=== PATIENT | female | born 1965 | race Hispanic/Latino ===

== ENCOUNTER 2018-09-05 14:30 | Emergency (ER) | payer OTHER ==
[2018-09-05 15:08] LABS: #Basophils 0.1 thou/uL (0.0-0.2); #Monocytes 0.6 thou/uL (0.11-0.59); #Neutrophils 10.4 thou/uL (1.40-6.50); %Basophils 0.5 % (0.0-1.0); %Lymphocytes 8.2 % (21.0-51.0); %Monocytes 5.1 % (0.0-10.0); %Neutrophils 86.2 % (42.0-75.0); Hemoglobin 14.4 g/dL (12.0-16.0); Mean Corpuscular HGB CONC 33.2 g/dL (32.0-36.0); Mean Corpuscular Hemoglobin 29.1 pg (27.0-31.0); Mean Corpuscular Volume 87.7 fL (78.0-98.0); Mean Platelet Volume 5.5 fL (7.4-10.4); Platelet Count 334 thou/uL (130-400); RBC Distribution Width 11.1 % (11.5-14.5); Red Blood Cell (RBC) Count 4.94 mill/uL (4.20-5.40); White Blood Cell (WBC) Count 12.1 thou/uL (4.8-10.8)
[2018-09-05] MEDS ORDERED: Acetaminophen 500 MG TAB ONE (15:11)
[2018-09-05] MEDS ORDERED: Sodium Chloride 0.9% 1,000 ML ONE (15:11)
[2018-09-05] MEDS ORDERED: Insulin Regular 300 UNITS/3 ML VIAL ONE ×2 (15:11→15:52)
[2018-09-05] MEDS ORDERED: Ondansetron PF 4 MG/2 ML Vial ONE (15:11)
[2018-09-05 15:25] LABS: ALT (SGPT) 19 U/L (8-55); AST (SGOT) 15 U/L (5-34); Albumin 4.3 g/dL (3.5-5.0); Alkaline Phosphatase 111 U/L (40-150); Anion Gap 20 mmol/L (10-20); BUN (Urea Nitrogen) 10 mg/dL (9.8-20.1); Bilirubin, Total 0.4 mg/dL (0.2-1.2); Calc. Creatinine Clearance 0 mL/min (70-130); Calcium 10.3 mg/dL (7.8-10.44); Carbon Dioxide 20 mmol/L (22-29); Chloride 99 mmol/L (98-107); Estimated GFR-MDRD 71; Globulin 3.1 g/dL (2.4-3.5); Glucose 390 mg/dL (70-105); Lipase 5 U/L (8-78); Potassium 3.8 mmol/L (3.5-5.1); Protein, Total 7.4 g/dL (6.0-8.3); Sodium 135 mmol/L (136-145)
[2018-09-05 15:32] LABS: Bilirubin Negative (Negative); Blood, Urine Small (Negative); Clarity Hazy (Clear); Glucose, Urine (Dipstick) 500 mg/dL (Negative); Leukocyte Negative (Negative); Nitrite Positive (Negative); Protein, Urine (Dipstick) Negative (Neg-Trace); Specific Gravity, Urine 1.015 (1.005-1.030); Urobilinogen 0.2 mg/dL (0.2-1.0); pH, Urine 5.5 (5.0-9.0)
[2018-09-05 15:37] LABS: Bacteria/HPF 1+ HPF (None Seen); RBC/HPF 0-3 HPF (0-3); Squamous Epithelial 0-3 HPF (0-3); Yeast-All Forms 1+ HPF (None Seen)
[2018-09-05] MEDS ORDERED: Sodium Chloride 0.9% 100 ML ONE (15:52)
== END 2018-09-05 16:59 | disposition short-term general hospital (02) ==
LOC: MADERS 14:30
DX: E10.10 Type 1 diabetes mellitus with ketoacidosis without coma (principal)
CPT/HCPCS: 36416; 80053; 81003; 81015; 83690; 84484; 85025; 87077; 87086; 87186; 93005; 96361; 96365; 96375; 96376; J1815; J2405; J3490; J7050

== ENCOUNTER 2021-08-04 15:52 | Emergency (ER) | payer OTHER | END 2021-08-04 18:30 | disposition home or self-care (01) | LOC: MADERS 15:52 | DX: S92.341A Displaced fracture of fourth metatarsal bone, right foot, initial encounter for closed fracture (principal); S92.354A Nondisplaced fracture of fifth metatarsal bone, right foot, initial encounter for closed fracture; S00.531A Contusion of lip, initial encounter; E11.9 Type 2 diabetes mellitus without complications; E78.5 Hyperlipidemia, unspecified; E78.00 Pure hypercholesterolemia, unspecified; I10 Essential (primary) hypertension; W19.XXXA Unspecified fall, initial encounter; Y92.096 Garden or yard of other non-institutional residence as the place of occurrence of the external cause; Z79.4 Long term (current) use of insulin | CPT/HCPCS: 28470 ==